=== PATIENT | female | born 1950 | race African-American/Black ===

== ENCOUNTER 2020-12-05 13:25 | Inpatient (IN) | payer MEDICARE ==
[~2020-12-05] VITALS: Ht 172.7 cm; Wt 43.5 kg
[2020-12-05] MEDS ORDERED: CARV3.1231 PO (13:30)
[2020-12-05] MEDS ORDERED: CARV6 PO (13:35)
[2020-12-05] MEDS ORDERED: FAMOTIDINE 10 MG/ML 2 ML VIAL IVP ONE (14:15)
[2020-12-05] MEDS ORDERED: SODIUM CHLORIDE 0.9% 1,000 ML IV ONE (14:15)
[2020-12-05] MEDS ORDERED: PB/HYOSCY/ATR/SCOP/LIDO/MAALOX 55 ML BOTTLE PO ONE (14:15)
[2020-12-05] MEDS ORDERED: ONDANSETRON HCL 4 MG/2 ML VIAL IVP ONE (14:15)
[2020-12-05] MEDS ORDERED: HYDR50TA36 PO (14:39)
[2020-12-05] MEDS ORDERED: ATOR40TA71 PO (14:40)
[2020-12-05] MEDS ORDERED: PANT-31 PO (14:40)
[2020-12-05] MEDS ORDERED: AMOX500C2 PO (14:42)
[2020-12-05] MEDS ORDERED: HYDR-4400 PO (14:43)
[2020-12-05 14:48] LABS: BASOPHILS % (AUTO) 0.7 % (0.0-2.0); EOSINOPHILS % (AUTO) 1.2 % (1.0-6.0); HEMATOCRIT 36.7 % (36-46); HEMOGLOBIN 11.7 g/dL (12.0-16.0); LYMPHOCYTES # (AUTO) 2.3 K/uL (1.0-4.8); MEAN CORPUSCULAR HEMOGLOBIN 27.7 pg (26.0-34.0); MEAN CORPUSCULAR HGB CONC 31.8 G/dL (31.0-37.0); MEAN CORPUSCULAR VOLUME 87 fL (80-100); MONOCYTES # (AUTO) 0.4 K/uL (0.1-1.0); MONOCYTES % (AUTO) 6.3 % (2.0-9.0); NEUTROPHILS # (AUTO) 2.9 K/uL (1.8-7.7); NEUTROPHILS % (AUTO) 50.8 % (40.0-70.0); PLATELET COUNT (AUTO) 338 K/uL (150-450); RED BLOOD CELL COUNT(AUTO) 4.21 MIL/uL (4.00-5.20); RED CELL DISTRIBUTION WIDTH 15.8 % (11.5-14.5)
[2020-12-05 15:01] LABS: ANION GAP 11 mmol/L (8-16); CALCIUM, TOTAL 9.3 mg/dL (8.8-10.5); CARBON DIOXIDE 24 mmol/L (22-29); CHLORIDE 101 mmol/L (98-107); CREATININE 0.77 mg/dL (0.60-1.30); GLOMERULAR FILTR. RATE CALC > 60 mL/min (>60); GLUCOSE,RANDOM 74 mg/dL (70-110); POTASSIUM 3.6 mmol/L (3.5-5.1); SODIUM SERUM 136 mmol/L (136-145); UREA NITROGEN, BLOOD 15 mg/dL (7-18)
[2020-12-05 15:05] LABS: ALANINE AMINOTRANSFERASE 25 U/L (12-78); ALBUMIN 3.5 g/dL (3.4-5.0); ALKALINE PHOSPHATASE 131 U/L (46-116); ASPARTATE AMINOTRANSFERASE 32 U/L (15-37); BILIRUBIN,TOTAL 0.3 mg/dL (0.1-1.0); LIPASE 313 U/L (73-393)
[2020-12-05] MEDS ORDERED: MORPHINE SULFATE 2 MG/ML SYRINGE IVP ONE (15:30)
[2020-12-05] MEDS ORDERED: IOHEXOL 350 MG/ML 75 ML VIAL ONE (15:30)
[2020-12-05] MEDS ORDERED: SODIUM CHLORIDE 0.9% 100 ML ONE (15:30)
[2020-12-05] MEDS ORDERED: MORPHINE SULFATE 4 MG/ML SYRINGE IVP ONE (15:30)
[2020-12-05] MEDS ORDERED: ASPIRIN 325 MG TABLET PO ONE (15:30)
[2020-12-05 16:01] LABS: APPEARANCE,URINE CLEAR (CLEAR); BILIRUBIN,URINE NEGATIVE (NEGATIVE); GLUCOSE, URINE (UA) NEGATIVE (NEGATIVE); KETONES,URINE NEGATIVE (NEGATIVE); LEUKOCYTE ESTERASE ,URINE NEGATIVE (NEGATIVE); NITRATE,URINE NEGATIVE (NEGATIVE); OCCULT BLOOD,URINE NEGATIVE (NEGATIVE); PROTEIN,URINE SEE CONFIRM (NEGATIVE); UROBILINOGEN,URINE 0.2 mg/dL (<=1.0)
[2020-12-05 16:08] LABS: BACTERIA,URINE Rare /HPF (None Seen); SQUAMOUS EPITHELIAL CELL,UR Few /LPF (None Seen); SULFOSALICYLIC ACID,URINE 2+ (Negative)
[2020-12-05 16:10] LABS: COVID AG,FIA SOURCE NASOPHARYNGEAL
[2020-12-05] MEDS ORDERED: ONDANSETRON HCL 4 MG/2 ML VIAL IVP PRN (16:15)
[2020-12-05] MEDS ORDERED: BISACODYL 10 MG RECTAL RECTAL SUPPOSITORY PR PRN (16:15)
[2020-12-05] MEDS ORDERED: MAGNESIUM HYDROXIDE SUSPENSION 30 ML UDCUP PO PRN (16:15)
[2020-12-05] MEDS ORDERED: ALBUTEROL SULFATE 2.5 MG/0.5 ML NEB SOLUTION NEB PRN (16:15)
[2020-12-05] MEDS ORDERED: NITROGLYCERIN 0.4 MG SUBLINGUAL TABLET #25 SL PRN ×2 (16:15→16:20)
[2020-12-05] MEDS ORDERED: IPRATROPIUM BROMIDE 0.5 MG/2.5 ML NEB SOLUTION NEB PRN (16:15)
[2020-12-05] MEDS ORDERED: DOCUSATE SODIUM 100 MG CAPSULE PO PRN (16:15)
[2020-12-05] MEDS ORDERED: 0.9% SODIUM CHLORIDE 10 ML SYRINGE IVP PRN (16:15)
[2020-12-05 18:38] VITALS: BP 176/70
[2020-12-05 19:32] VITALS: BP 152/82
[2020-12-05] MEDS: PANTOPRAZOLE SODIUM 40 MG/VIAL IVP SCH (19:56)
[2020-12-05] MEDS: HydrALAZINE HCL 50 MG TABLET PO SCH (19:57)
[2020-12-05] MEDS: MORPHINE SULFATE 2 MG/ML SYRINGE IVP PRN (19:57)
[2020-12-05] MEDS: CARVEDILOL 6.25 MG TABLET PO SCH (19:57)
[2020-12-05] MEDS ORDERED: PANTOPRAZOLE SODIUM 40 MG DR TABLET PO SCH (21:00)
[2020-12-06] VITALS (7 sets, daily range): BP systolic 115–145; BP diastolic 53–66
[2020-12-06] MEDS: MORPHINE SULFATE 2 MG/ML SYRINGE IVP PRN ×4 (03:41→22:03)
[2020-12-06 06:22] LABS: BASOPHILS % (AUTO) 0.5 % (0.0-2.0); HEMATOCRIT 34.6 % (36-46); HEMOGLOBIN 11.1 g/dL (12.0-16.0); LYMPHOCYTES # (AUTO) 1.7 K/uL (1.0-4.8); LYMPHOCYTES % (AUTO) 35.1 % (22.0-44.0); MEAN CORPUSCULAR HEMOGLOBIN 28.3 pg (26.0-34.0); MEAN CORPUSCULAR HGB CONC 32.2 G/dL (31.0-37.0); MEAN CORPUSCULAR VOLUME 88 fL (80-100); MONOCYTES # (AUTO) 0.5 K/uL (0.1-1.0); MONOCYTES % (AUTO) 10.2 % (2.0-9.0); NEUTROPHILS # (AUTO) 2.6 K/uL (1.8-7.7); NEUTROPHILS % (AUTO) 52.2 % (40.0-70.0); PLATELET COUNT (AUTO) 290 K/uL (150-450); RED BLOOD CELL COUNT(AUTO) 3.94 MIL/uL (4.00-5.20); RED CELL DISTRIBUTION WIDTH 15.8 % (11.5-14.5)
[2020-12-06 06:59] LABS: ALANINE AMINOTRANSFERASE 19 U/L (12-78); ALKALINE PHOSPHATASE 112 U/L (46-116); ANION GAP 10 mmol/L (8-16); ASPARTATE AMINOTRANSFERASE 23 U/L (15-37); BILIRUBIN,TOTAL 0.2 mg/dL (0.1-1.0); CALCIUM, TOTAL 8.9 mg/dL (8.8-10.5); CARBON DIOXIDE 24 mmol/L (22-29); CHLORIDE 106 mmol/L (98-107); CHOL/HDL RATIO 2.9 (3.9-5.7); CHOLESTEROL 173 mg/dL (131-200); CREATININE 0.88 mg/dL (0.60-1.30); GLUCOSE,RANDOM 58 mg/dL (70-110); HDL CHOLESTEROL 59 mg/dL (40-60); LDL CHOL (CALC.) 89 mg/dL (0-130); POTASSIUM 3.3 mmol/L (3.5-5.1); SODIUM SERUM 140 mmol/L (136-145); THYROID STIMULATING HORMONE 0.86 uIU/mL (0.36-3.74); TOTAL PROTEIN, SERUM 8.1 g/dL (6.4-8.2); TRIGLYCERIDES 126 mg/dL (15-150); UREA NITROGEN, BLOOD 13 mg/dL (7-18)
[2020-12-06 07:02] LABS: GLOMERULAR FILTR. RATE CALC > 60 mL/min (>60)
[2020-12-06] MEDS: CARVEDILOL 6.25 MG TABLET PO SCH ×2 (08:28→20:45)
[2020-12-06] MEDS: PANTOPRAZOLE SODIUM 40 MG/VIAL IVP SCH ×2 (08:28→20:45)
[2020-12-06] MEDS: HydrALAZINE HCL 50 MG TABLET PO SCH ×3 (08:28→20:45)
[2020-12-06] MEDS: ATORVASTATIN CALCIUM 40 MG TABLET PO SCH (08:28)
[2020-12-06] MEDS: ASPIRIN 81 MG CHEWABLE TABLET PO SCH (08:28)
[2020-12-06] MEDS ORDERED: DEXTROSE 50%-WATER 25 GM/50 ML SYRINGE IVP PRN (13:30)
[2020-12-06] MEDS ORDERED: POTASSIUM CHLORIDE 20 MEQ ER TABLET PO PRN (13:30)
[2020-12-06] MEDS ORDERED: INSULIN LISPRO 100 UNITS/ML SQ PRN (13:30)
[2020-12-06 13:56] LABS: FREE T4 (FREE THYROXINE) 0.98 ng/dL (0.76-1.46)
[2020-12-06] MEDS: DEXTROSE 5%-0.45% SODIUM CHL 1,000 ML IV SCH (17:07)
[2020-12-06] MEDS: MELATONIN 3 MG TABLET PO PRN (22:04)
[2020-12-07 04:02] VITALS: BP 134/60
[2020-12-07] MEDS: MORPHINE SULFATE 2 MG/ML SYRINGE IVP PRN ×2 (04:49→11:08)
[2020-12-07 06:13] LABS: GLUCOMETER DEV NAME(LOC) 5N.1C; GLUCOSE,POINT OF CARE 46 MG/DL (70-110)
[2020-12-07 06:13] LABS: GLUCOMETER DEV NAME(LOC) 5N.1C; GLUCOSE,POINT OF CARE 216 MG/DL (70-110)
[2020-12-07 06:48] LABS: BASOPHILS % (AUTO) 0.6 % (0.0-2.0); EOSINOPHILS % (AUTO) 2.1 % (1.0-6.0); HEMATOCRIT 31.9 % (36-46); HEMOGLOBIN 10.3 g/dL (12.0-16.0); LYMPHOCYTES # (AUTO) 2.2 K/uL (1.0-4.8); LYMPHOCYTES % (AUTO) 40.7 % (22.0-44.0); MEAN CORPUSCULAR HEMOGLOBIN 28.2 pg (26.0-34.0); MEAN CORPUSCULAR HGB CONC 32.4 G/dL (31.0-37.0); MEAN CORPUSCULAR VOLUME 87 fL (80-100); MONOCYTES # (AUTO) 0.6 K/uL (0.1-1.0); MONOCYTES % (AUTO) 10.4 % (2.0-9.0); NEUTROPHILS # (AUTO) 2.5 K/uL (1.8-7.7); NEUTROPHILS % (AUTO) 46.2 % (40.0-70.0); PLATELET COUNT (AUTO) 282 K/uL (150-450); RED BLOOD CELL COUNT(AUTO) 3.66 MIL/uL (4.00-5.20)
[2020-12-07 06:54] LABS: AMPHET/METH SCREEN,URINE NEGATIVE (NEGATIVE); BARBITURATE SCREEN, URINE NEGATIVE (NEGATIVE); BENZODIAZEPINES SCREEN,URINE NEGATIVE (NEGATIVE); CANNABINOID SCREEN,URINE NEGATIVE (NEGATIVE); COCAINE SCREEN,URINE NEGATIVE (NEGATIVE); METHADONE SCREEN, URINE NEGATIVE (NEGATIVE); OPIATE SCREEN,URINE NEGATIVE (NEGATIVE)
[2020-12-07 06:59] LABS: PHENCYCLIDINE SCREEN,URINE NEGATIVE (NEGATIVE)
[2020-12-07 07:08] LABS: ALANINE AMINOTRANSFERASE 20 U/L (12-78); ALBUMIN 2.7 g/dL (3.4-5.0); ALKALINE PHOSPHATASE 97 U/L (46-116); ANION GAP 8 mmol/L (8-16); ASPARTATE AMINOTRANSFERASE 22 U/L (15-37); BILIRUBIN,TOTAL 0.4 mg/dL (0.1-1.0); CALCIUM, TOTAL 8.9 mg/dL (8.8-10.5); CARBON DIOXIDE 23 mmol/L (22-29); CHLORIDE 106 mmol/L (98-107); CREATININE 0.95 mg/dL (0.60-1.30); GLUCOSE,RANDOM 82 mg/dL (70-110); POTASSIUM 3.8 mmol/L (3.5-5.1); SODIUM SERUM 137 mmol/L (136-145); TOTAL PROTEIN, SERUM 7.1 g/dL (6.4-8.2); UREA NITROGEN, BLOOD 16 mg/dL (7-18)
[2020-12-07 07:11] LABS: GLOMERULAR FILTR. RATE CALC > 60 mL/min (>60)
[2020-12-07 07:33] LABS: PHOSPHORUS 3.1 mg/dL (2.5-4.9)
[2020-12-07 07:45] VITALS: BP 160/51
[2020-12-07] MEDS: PANTOPRAZOLE SODIUM 40 MG/VIAL IVP SCH ×2 (08:15→21:42)
[2020-12-07] MEDS: HydrALAZINE HCL 50 MG TABLET PO SCH ×3 (08:15→21:41)
[2020-12-07] MEDS: CARVEDILOL 6.25 MG TABLET PO SCH ×2 (08:15→21:41)
[2020-12-07] MEDS: ASPIRIN 81 MG CHEWABLE TABLET PO SCH (08:15)
[2020-12-07] MEDS: ATORVASTATIN CALCIUM 40 MG TABLET PO SCH (08:15)
[2020-12-07] MEDS: ACETAMINOPHEN 325 MG TABLET PO PRN ×2 (08:23→13:20)
[2020-12-07] MEDS: DEXTROSE 5%-0.45% SODIUM CHL 1,000 ML IV SCH (10:01)
[2020-12-07 11:42] VITALS: BP 136/57
[2020-12-07] MEDS: HYDROCODONE/ACETAMINOPHEN 10-325 MG TABLET PO PRN ×2 (15:30→21:41)
[2020-12-07 16:04] VITALS: BP 139/57
[2020-12-07 19:22] VITALS: BP 148/66
[2020-12-07] MEDS: MELATONIN 3 MG TABLET PO PRN (21:41)
[2020-12-07 23:48] VITALS: BP 133/58
[2020-12-08] MEDS: HYDROCODONE/ACETAMINOPHEN 10-325 MG TABLET PO PRN ×3 (03:26→17:56)
[2020-12-08 04:42] VITALS: BP 153/67
[2020-12-08 06:30] LABS: BASOPHILS % (AUTO) 0.3 % (0.0-2.0); EOSINOPHILS % (AUTO) 3.8 % (1.0-6.0); HEMATOCRIT 32.1 % (36-46); HEMOGLOBIN 10.2 g/dL (12.0-16.0); LYMPHOCYTES # (AUTO) 1.3 K/uL (1.0-4.8); LYMPHOCYTES % (AUTO) 23.8 % (22.0-44.0); MEAN CORPUSCULAR HGB CONC 31.7 G/dL (31.0-37.0); MEAN CORPUSCULAR VOLUME 88 fL (80-100); MONOCYTES # (AUTO) 0.6 K/uL (0.1-1.0); NEUTROPHILS # (AUTO) 3.3 K/uL (1.8-7.7); NEUTROPHILS % (AUTO) 61.1 % (40.0-70.0); PLATELET COUNT (AUTO) 303 K/uL (150-450); RED BLOOD CELL COUNT(AUTO) 3.65 MIL/uL (4.00-5.20); RED CELL DISTRIBUTION WIDTH 16.3 % (11.5-14.5)
[2020-12-08 06:47] LABS: ANION GAP 9 mmol/L (8-16); CALCIUM, TOTAL 8.5 mg/dL (8.8-10.5); CARBON DIOXIDE 24 mmol/L (22-29); CHLORIDE 104 mmol/L (98-107); CREATININE 0.78 mg/dL (0.60-1.30); GLUCOSE,RANDOM 89 mg/dL (70-110); POTASSIUM 3.8 mmol/L (3.5-5.1); SODIUM SERUM 137 mmol/L (136-145); UREA NITROGEN, BLOOD 12 mg/dL (7-18)
[2020-12-08 06:53] LABS: GLOMERULAR FILTR. RATE CALC > 60 mL/min (>60)
[2020-12-08] MEDS: ASPIRIN 81 MG CHEWABLE TABLET PO SCH (07:29)
[2020-12-08] MEDS: DEXTROSE 5%-0.45% SODIUM CHL 1,000 ML IV SCH ×2 (07:29→20:01)
[2020-12-08] MEDS: PANTOPRAZOLE SODIUM 40 MG/VIAL IVP SCH ×2 (07:29→19:54)
[2020-12-08] MEDS: HydrALAZINE HCL 50 MG TABLET PO SCH ×3 (07:29→20:21)
[2020-12-08] MEDS: ATORVASTATIN CALCIUM 40 MG TABLET PO SCH (07:29)
[2020-12-08] MEDS: CARVEDILOL 6.25 MG TABLET PO SCH ×2 (07:29→19:53)
[2020-12-08 07:32] VITALS: BP 152/71
[2020-12-08 11:31] VITALS: BP 115/56
[2020-12-08] MEDS ORDERED: ASPI-1450 PO (13:09)
[2020-12-08] MEDS ORDERED: ACET-2247 PO (13:10)
[2020-12-08] MEDS ORDERED: AUD NEB (13:11)
[2020-12-08] MEDS ORDERED: DOCU-275 PO (13:12)
[2020-12-08] MEDS ORDERED: BISA10SU11 PR (13:12)
[2020-12-08] MEDS ORDERED: HYDR-4072 PO (13:13)
[2020-12-08] MEDS ORDERED: MOM30 PO (13:14)
[2020-12-08] MEDS ORDERED: MELA3TAB89 PO (13:15)
[2020-12-08] MEDS ORDERED: NITR0.4T52 SL (13:15)
[2020-12-08] MEDS: MORPHINE SULFATE 2 MG/ML SYRINGE IVP PRN ×2 (14:17→22:24)
[2020-12-08 15:35] VITALS: BP 140/60
[2020-12-08 19:20] VITALS: BP 187/75
[2020-12-08] MEDS: ACETAMINOPHEN 325 MG TABLET PO PRN (20:01)
[2020-12-08] MEDS: MELATONIN 3 MG TABLET PO PRN (20:21)
[2020-12-08 23:31] VITALS: BP 149/70
[2020-12-09] MEDS: HYDROCODONE/ACETAMINOPHEN 10-325 MG TABLET PO PRN ×4 (01:21→22:11)
[2020-12-09 03:42] VITALS: BP 143/56
[2020-12-09 08:05] VITALS: BP 187/72
[2020-12-09] MEDS: PANTOPRAZOLE SODIUM 40 MG/VIAL IVP SCH ×2 (08:13→20:57)
[2020-12-09] MEDS: ASPIRIN 81 MG CHEWABLE TABLET PO SCH (08:14)
[2020-12-09] MEDS: CARVEDILOL 6.25 MG TABLET PO SCH ×2 (08:14→20:57)
[2020-12-09] MEDS: HydrALAZINE HCL 50 MG TABLET PO SCH ×3 (08:14→20:57)
[2020-12-09] MEDS: ATORVASTATIN CALCIUM 40 MG TABLET PO SCH (08:15)
[2020-12-09 08:41] VITALS: BP 183/82
[2020-12-09 09:44] VITALS: BP 133/41
[2020-12-09] MEDS: MORPHINE SULFATE 2 MG/ML SYRINGE IVP PRN ×2 (11:38→19:41)
[2020-12-09] MEDS: DEXTROSE 5%-0.45% SODIUM CHL 1,000 ML IV SCH (11:38)
[2020-12-09 16:07] VITALS: BP 144/61
[2020-12-09 19:32] VITALS: BP 146/59
[2020-12-09] MEDS: MELATONIN 3 MG TABLET PO PRN (22:12)
[2020-12-10 00:29] VITALS: BP 134/57
[2020-12-10] MEDS: MORPHINE SULFATE 2 MG/ML SYRINGE IVP PRN ×3 (03:23→18:43)
[2020-12-10 04:32] VITALS: BP 133/51
[2020-12-10] MEDS: DEXTROSE 5%-0.45% SODIUM CHL 1,000 ML IV SCH (06:21)
[2020-12-10 08:04] VITALS: BP 147/69
[2020-12-10] MEDS: HYDROCODONE/ACETAMINOPHEN 10-325 MG TABLET PO PRN ×3 (08:29→22:26)
[2020-12-10] MEDS: PANTOPRAZOLE SODIUM 40 MG/VIAL IVP SCH ×2 (08:30→20:29)
[2020-12-10] MEDS: ATORVASTATIN CALCIUM 40 MG TABLET PO SCH (08:30)
[2020-12-10] MEDS: HydrALAZINE HCL 50 MG TABLET PO SCH ×3 (08:30→20:29)
[2020-12-10] MEDS: CARVEDILOL 6.25 MG TABLET PO SCH ×2 (08:30→20:29)
[2020-12-10] MEDS: THIAMINE 100 MG TABLET PO SCH (08:30)
[2020-12-10] MEDS: ASPIRIN 81 MG CHEWABLE TABLET PO SCH (08:30)
[2020-12-10] MEDS: MULTIVITAMINS, THERAPEUTIC TABLET PO SCH (08:30)
[2020-12-10 15:55] VITALS: BP 144/63
[2020-12-10 19:40] VITALS: BP_SYST 136; BP_SYST 157; BP_DIAS 61; BP_DIAS 84
[2020-12-11] MEDS: DEXTROSE 5%-0.45% SODIUM CHL 1,000 ML IV SCH (00:03)
[2020-12-11] MEDS: MELATONIN 3 MG TABLET PO PRN (00:04)
[2020-12-11 00:38] VITALS: BP 138/70
[2020-12-11 04:35] VITALS: BP 142/56
[2020-12-11] MEDS: MORPHINE SULFATE 2 MG/ML SYRINGE IVP PRN (06:13)
[2020-12-11] MEDS: HydrALAZINE HCL 50 MG TABLET PO SCH (08:53)
[2020-12-11] MEDS: PANTOPRAZOLE SODIUM 40 MG/VIAL IVP SCH (08:53)
[2020-12-11] MEDS: ASPIRIN 81 MG CHEWABLE TABLET PO SCH (08:54)
[2020-12-11] MEDS: CARVEDILOL 6.25 MG TABLET PO SCH (08:54)
[2020-12-11] MEDS: THIAMINE 100 MG TABLET PO SCH (08:55)
[2020-12-11] MEDS: MULTIVITAMINS, THERAPEUTIC TABLET PO SCH (08:55)
[2020-12-11] MEDS: ATORVASTATIN CALCIUM 40 MG TABLET PO SCH (08:55)
[2020-12-11 09:05] VITALS: BP 153/58
[2020-12-11] MEDS: HYDROCODONE/ACETAMINOPHEN 10-325 MG TABLET PO PRN (10:45)
[2020-12-11] MEDS ORDERED: THIA100T80 PO (11:22)
[2020-12-11 11:25] VITALS: BP 150/60
== END 2020-12-11 15:30 | disposition home or self-care (01) | DRG 389 ==
LOC: EMS 13:25 → 5S 16:57 → 6N 12-08 19:06
PROVIDERS: ADMIT Internal Medicine; ATTEND Internal Medicine
DX: K56.7 Ileus, unspecified (principal); I25.110 Atherosclerotic heart disease of native coronary artery with unstable angina pectoris; F11.20 Opioid dependence, uncomplicated; K20.90 Esophagitis, unspecified without bleeding; E11.9 Type 2 diabetes mellitus without complications; Z20.822 Contact with and (suspected) exposure to COVID-19; E78.5 Hyperlipidemia, unspecified; E87.6 Hypokalemia; I10 Essential (primary) hypertension; K59.00 Constipation, unspecified; M54.9 Dorsalgia, unspecified; I80.9 Phlebitis and thrombophlebitis of unspecified site; D64.9 Anemia, unspecified
CPT/HCPCS: 71045; 74021; 74177; 76705; 80048; 80053; 80061; 80307; 81001; 81002; 82962; 83036; 83690; 83735; 83880; 84100; 84132; 84145; 84439; 84443; 84484; 85025; 87081; 93005; 93306; 93971; 97116; 97162; 97530; 99285; A9575; C9113; J2270; J2405; J3490; J7030; J7050; 36415-L1; 36415-TC